=== PATIENT | female | born 1950 | race Caucasian/White ===

== ENCOUNTER 2019-12-26 05:38 | Day surgery (SDC) | payer BC ==
[2019-12-26] MEDS ORDERED: LIDOCAINE 2% MDV (20MG/ML) 20ML VIAL IV ONE (05:39)
[2019-12-26] MEDS ORDERED: ONDANSETRON HCL IV 4 MG/2 ML VIAL IVP ONE (05:39)
[2019-12-26] MEDS ORDERED: MIDAZOLAM HCL 2MG/2ML VIAL IV ONE (05:39)
[2019-12-26] MEDS ORDERED: PROPOFOL 10 MG/ML VIAL IV ONE (05:39)
[2019-12-26] MEDS ORDERED: DEXAMETHASONE 4 MG/ML 1ML VIAL IVP ONE (05:39)
[2019-12-26] MEDS ORDERED: DESFLURANE 240 ML BTL INH ONE (05:39)
[2019-12-26] MEDS ORDERED: FENTANYL PF 100MCG/2ML VIAL IV ONE (05:39)
[2019-12-26] MEDS ORDERED: MECLIZINE 25 MG TABLET PO ONE (06:00)
[2019-12-26] MEDS ORDERED: FAMOTIDINE 20MG TABLET PO ONE (06:00)
[2019-12-26] MEDS ORDERED: METOCLOPRAMIDE 10 MG TABLET PO ONE (06:00)
[2019-12-26] MEDS ORDERED: RINGERS SOLUTION,LACTATED 1,000 ML IV ONE (06:10)
--- NOTE | 2019-12-26 08:48 | Operative Note ---
DATE OF SURGERY: 12/26/2019 PREOPERATIVE DIAGNOSIS: ABNORMAL ENDOMETRIUM ON ULTRASOUND. POSTOPERATIVE DIAGNOSIS: ABNORMAL ENDOMETRIUM ON ULTRASOUND. OPERATION: DIAGNOSTIC HYSTEROSCOPY, D&C. SURGEON: Mary Lou Ruiz D.O. ANESTHESIA: General. COMPLICATIONS: None. ESTIMATED BLOOD LOSS: Minimal. HISTORY: This is a G3,P2-0-1-2. She had right lower quadrant pain for the last four years. She had a significant work-up for it. She recently had an ultrasound which showed a possible area in the endometrium which could represent a polyp, hyperplasia or cancer per ultrasound. Because of that we have to do an D&C. The findings during the procedure showed an atrophic lining. PROCEDURE: The patient was prepped for surgery and brought back to the Operative Suite. She was placed under general anesthesia. She was sterilely prepped and draped in the dorso-lithotomy position. A weighted speculum was placed in the vaginal vault. A single toothed tenaculum was used to pick-up the anterior lip of the cervix. The cervix was serially dilated to 15-Mongolian. The hysteroscope was then placed. The above findings were noted. There was no polyp. The hysteroscope was then removed. Curettings were obtained with a minimal amount of tissue. The tenaculum was removed. No bleeding was noted. The speculum was removed. The patient was then awoken from general anesthesia and brought back to the Recovery Room in satisfactory condition. JOB NUMBER: [id number] MTDD
== END 2019-12-26 08:45 | disposition home or self-care (01) ==
LOC: SUR 05:38
PROVIDERS: ATTEND Obstetrics & Gynecology
DX: N85.00 Endometrial hyperplasia, unspecified (principal); E03.9 Hypothyroidism, unspecified
CPT/HCPCS: J2405; J7120